=== PATIENT | male | born 1985 | race Caucasian/White ===

== ENCOUNTER 2020-04-19 14:06 | Outpatient (CLI) | payer OTHER, SELFPAY ==
--- NOTE | ~2020-04-19 | MR_ITS ---
EXAMINATION: MR lumbar spine wo con EXAM DATE: 04/19/2020 15:14 INDICATION: Chronic low back pain. TECHNIQUE: Multi-sequential, multiplanar MR images of the lumbar spine were obtained without contrast . Sagittal T1, T2, T2 fat saturation images. Axial T2 weighted images. There is no prior study for comparison. FINDINGS: The conus medullaris terminates at the L1 level and has normal signal intensity and morphol ogy. There are no suspicious marrow signal abnormalities. Paraspinal soft tissue is unremarkable. T here is chronic bilateral L5 spondylolysis with 12 mm anterolisthesis L5 on S1, moderate disc disease . Mild disc disease at L4-5. The vertebral body and disc heights are otherwise well maintained. The v ertebral bodies are otherwise aligned. Level by level evaluation: T12-L1: There is a mild diffuse disc bulge. Facet arthropathy: Mild. Neural foraminal stenosis: No stenosis. Central canal stenosis: No stenosis. L1-L2: Disc does not extend beyond the endplate margin. Facet arthropathy: Mild. Neural foraminal stenosis: No stenosis. Central canal stenosis: No stenosis. L2-L3: There is a mild diffuse disc bulge. Facet arthropathy: Mild. Neural foraminal stenosis: No stenosis. Central canal stenosis: No stenosis. L3-L4: There is a mild diffuse disc bulge. Facet arthropathy: Mild. Neural foraminal stenosis: No stenosis. Central canal stenosis: No stenosis. L4-L5: There is a mild to moderate diffuse disc bulge. Facet arthropathy: Mild to moderate. Neural foraminal stenosis: Mild bilateral. Central canal stenosis: Mild. L5-S1: There is a moderate diffuse disc bulge. Facet arthropathy: Mild. Neural foraminal stenosis: Moderate bilateral. Central canal stenosis: Mild. IMPRESSION: 1. L5-S1 bilateral spondylolysis, grade 2 anterolisthesis, moderate bilateral neural foraminal steno sis. 2. Otherwise mild lumbar spondylosis. Reviewed, dictated and finalized at location B. IMPRESSION: 1. L5-S1 bilateral spondylolysis, grade 2 anterolisthesis, moderate bilateral neural foraminal stenosis. 2. Otherwise mild lumbar spondylosis.
== END 2020-04-19 14:07 | disposition home or self-care (01) ==
PROVIDERS: PCP Family Medicine; Visit Provider Family Medicine
DX: M54.5 Low back pain (principal); G89.29 Other chronic pain; R93.89 Abnormal findings on diagnostic imaging of other specified body structures; M54.16 Radiculopathy, lumbar region; M43.17 Spondylolisthesis, lumbosacral region; M48.07 Spinal stenosis, lumbosacral region; M47.816 Spondylosis without myelopathy or radiculopathy, lumbar region
CPT/HCPCS: 72148

== ENCOUNTER 2021-07-27 15:59 | Emergency (ER) | payer SELFPAY ==
[2021-07-27 16:14] VITALS: BP 121/75; PULSE 71; RESP 20; TEMP 36.3; O2SAT 99
--- NOTE | 2021-07-27 16:26 | ED.SKABFB ---
HPI - Skin/Abscess/Foreign Bdy General Chief complaint: Skin/Abscess/Foreign Body Stated complaint: Insect Bite Time Seen by Provider: 07/27/21 16:26 History of Present Illness HPI narrative: Cornelio Meng is 36 yo male with no PMH who comes to [facility] with a soft lesion in the left side of neck that looks like a infected hair are patient thinks might be spider bite that became symptomatic 24 hours ago, no itching, mild tenderness Related Data Home Medications Medication Instructions Recorded Confirmed dextroamphetamine-amphetamine 40 mg PO DAILY 07/27/21 07/27/21 Allergies Allergy/AdvReac Type Severity Reaction Status Date / Time alprazolam Allergy Unknown Other Verified 07/27/21 16:30 Review of Systems Review of Systems: CONSTITUTIONAL: Denies fever, chills, sweats. EYES: Denies visual changes, redness, discharge. ENT: Denies rhinorrhea, congestion, sore throat, otalgia. CARDIOVASCULAR: Denies chest pain, palpitations, edema. RESPIRATORY: Denies dyspnea, wheezing, cough GASTROINTESTINAL: Denies abdominal pain, nausea, vomiting, diarrhea. GENITOURINARY: Denies dysuria, hematuria, abnormal discharge SKIN: Denies rash or itching. Lesion to left neck below the jawline that measures 1 x 2 NEUROLOGIC: Denies numbness, or focal weakness. PSYCHIATRIC: Denies anxiety or depression. PMFSH Past Medical History Medical History No acute medical problems Family History Family History Mother Patient's mother is in good health Father Patient's father is in good health Sibling Patient's brother is in good health Social History Social History (Updated 07/27/21 @ 16:47 by Marcie Laura CNP) Smoking status: Current every day smoker Tobacco type: cigarettes Alcohol intake: current Comments At time of signature, I agree with nursing past medical, surgical, social and family history. There is no relevant family history pertinent to the presenting complaint. Exam Narrative: GENERAL: This is a well-nourished, well-developed patient, in mild distress. HEAD: normocephalic, atraumatic. EYES: Sclera clear/white. Vision is grossly intact. EARS: External ears normal, . Hearing grossly intact. NOSE: External nose normal without nasal discharge, nares without redness, no rhinorrhea. THROAT: Mucous membranes moist, NECK: Neck supple,-tender lesion, non fluctuant, below L jawline, some redness, no drainage, he has few days chaudhry growth in the area CARDIOVASCULAR: Regular rate and rhythm without murmurs, gallops, or rubs. RESPIRATORY: Clear to auscultation. Breath sounds equal bilaterally. No wheezes, rales, or rhonchi. GASTROINTESTINAL: Abdomen soft, non-tender, SKIN: warm, intact except as above NEURO: awake, alert, and oriented to person, place and time. There were no obvious focal neurologic abnormalities. Steady gait EXTREMITIES: Normal range of motion. BACK: Nontender without deformity Course Course Emergency Course: Patient is here with lesions to left neck No drainage nonfluctuant Started on Keflex 500 mg 3 times daily, directions for care including warm soaks and not to try and open up, dry out razor Vital Signs Vital signs: Vital Signs Temperature 97.4 F L 07/27/21 16:14 Pulse Rate 71 07/27/21 16:14 Respiratory Rate 20 07/27/21 16:14 Blood Pressure 121/75 07/27/21 16:14 Pulse Oximetry 99 07/27/21 16:14 Temperature 97.4 F L 07/27/21 16:14 Pulse Rate 71 07/27/21 16:14 Respiratory Rate 20 07/27/21 16:14 Blood Pressure 121/75 07/27/21 16:14 Pulse Oximetry 99 07/27/21 16:14 MDM - Skin/Abscess/Foreign Bdy Differential Diagnosis Differential diagnosis: Likely abscess of skin or subcutaneous tissue, cellulitis, insect bites and other Critical Care Time Critical Care Time Critical Care Time: No Discharge Plan Discharge Clinical Impression: Foll
== END 2021-07-27 16:55 | disposition home or self-care (01) ==
PROVIDERS: Emergency Provider Nurse Practitioner; PCP Nurse Practitioner Family
DX: L73.9 Follicular disorder, unspecified (principal); F17.210 Nicotine dependence, cigarettes, uncomplicated
CPT/HCPCS: 99213; G0463

== ENCOUNTER 2025-05-23 20:35 | Emergency (ER) | payer SELFPAY ==
--- NOTE | ~2025-05-23 | XR_ITS ---
EXAM: XR hand RT min 3V DATE: 05/23/2025 21:17 HISTORY: wound, possible glass . COMPARISON: None available. FINDINGS: Normal mineralization. No fracture. DRUJ widening is suggested in the oblique view and the re is lack of normal overlap of distal radius and ulna in the lateral view. No lytic or blastic lesio n. Ulnar positive variance. Mild polyarticular osteoarthritis. No radiopaque foreign body. No erosion or periosteal change. Soft tissue irregularity over the lateral wrist and hand. IMPRESSION: No acute fracture. Question subluxation at the DRUJ, which could be acute or chronic. No radial opaque foreign body. Reviewed, dictated and finalized at location K.
--- OUTSIDE RECORDS SUMMARY | 2025-05-23 20:37 | XMS_ITS | Clinical Summary ---
Author Organization [facility] Address [address] [place] [address] Care Team Providers Care Licensed Loan Officer Name Role Phone Huyen Tamayo SANTO Primary Care Provider [phone] Allergies Active Allergy Reactions Criticality Noted Date Comments Lorazepam Hallucinations 03/30/2019 Medications amphetamine-dext roamphetamine 20 MG tablet Take 1 tablet (20 mg total) by mouth 2 (two) times daily. 0 03/09/2019 Active Active Problems Problem Noted Date Diagnosed Date Dental infection 04/05/2023 Chronic midline low back pain with bilateral sci atica 04/15/2020 Lumbar radiculopathy 04/15/2020 Abnormal x-ray 04/15/2020 Pars defect with spondylolisthesis 04/15/2020 Anterolisthesis 04/15/2020 Mass of spine 04/15/2020 Left foot pain 04/12/2019 Closed nondisplaced fracture of proximal phalanx of lesser toe of left foot, initial encounter 04/12/2019 Current smoker 03/30/2019 Vitamin D deficiency 03/30/2019 Attention deficit hyperactiv ity disorder (ADHD), predominantly inattentive type 03/30/2019 Class 2 obesity due to exces s calories without serious comorbidity with body mass index (BMI) of 36.0 to 36.9 in adult 03/30/2019 Resolved Problems Problem Noted Date Diagnosed Date Resolved Date Screening for endocrine, met abolic and immunity disorder 03/30/2019 07/01/2020 Immunizations Immunization Administration Dates Next Due Tdap (Boostrix) 03/30/2019 Tdap (Generic) 03/30/2019 Family History Medical History Relation Comments Diabetes Maternal Grandmother Heart Maternal Grandmother Hypertension Mother Thyroid Mother Relation Status Comments Father Alive Maternal Grandmother (Age 47) Mother Alive Social History Tobacco Use Types Packs/Day Years Used Date Smoking Tobacco: Every Day Cigarettes 15 1 Smokeless Tobacco: Never Tobacco Cessation:Ready to Q uit: Yes; Counseling Given: No Comments:10/22 PPD 04/05/23 Alcohol Use Standard Drinks/Week Comments No 0 (1 standard drink = 0.6 oz pur e alcohol) AUDIT-C Answer Date Recorded Frequency of Alcohol Consumption Never 03/30/2019 Average Number of Drinks Not on file 019 Frequency of Binge Drinking Not on file 03/21 PHQ-2 Answer Date Recorded Patient Health Questionnaire-2 Score 4 04/05/2023 Sex and Gender Information Value Date Recorded Sex Assigned at Male 04/15/2023 8:17 AM CDT Legal Sex Male 8:44 AM CDT Gender Identity Male 04/15/2023 8:17 AM CDT Sexual Orientation Straight 04/15/2023 8: 17 AM CDT Last Filed Vital Signs Vital Sign Reading Time Taken Comments Blood Pressure 127/71 04/05/2023 9:49 AM CDT Pulse 67 04/05/2023 9:49 AM CDT Temperature 36.2 C (97.1 F) 04/05/2023 9:49 AM CDT Respiratory Rate 16 04/05/2023 9:49 AM CDT Oxygen Saturation 97% 04/05/2023 9:49 AM CDT Inhaled Oxygen Concentration - - Weight 112.5 kg (248 lb) 04/05/2023 9:49 AM CDT Height 180.3 cm (5' 11) 04/05/2023 9:49 AM CDT Body Mass Index 34.59 04/05/2023 9:49 AM CDT Plan of Treatment Health Maintenance Due Date Last Done Comments Annual Physical 1986 Hepatitis C 2001 Hepatitis B Vaccines (1 of 3 - 19+ 3-dose series) 2002 Pneumococcal Vaccine: Pediatrics (0 to 5 Years) and At-Risk Patients (6 to 49 Years) (1 of 2 - PCV) 2002 HPV Vaccines (1 - 3-dose SCD M series) 2010 COVID-19 Vaccine (2023-2 5 season) 2024 PHQ-2 (Physician [place]) 10/21/2024 DTaP, Tdap and Td Vaccines ( 3 - Td or Tdap) 03/30/2029 03/30/2019, 03/30/2019 Meningococcal B Vaccine Aged Out No l onger eligible based on patient's age to complete this topic Meningococcal Vaccine Aged Out No francine ayse eligible based on patient's age to complete this topic RSV Immunizations Under 20 Months Aged Out No longer eligible b ased on patient's age to complete this topic Care Teams Licensed Loan Officer Relationship Specialty Start Date End Date Huyen Tamayo FNP [address] [place] [address] PCP - General Nurse Practitioner Family 03/30/19
--- OUTSIDE RECORDS SUMMARY | 2025-05-23 20:37 | XMS_ITS | Continuity of Care Document ---
Author Organization Merged with [facility] Address [address] [facility] [address] [place] [address] Phone Care Team Providers Care Eap Consultant Name Role Phone Roberto OD, Keith Unavailable Unavailable Advance Directives Directive Yes / No Effective Date File Name No Information Encounters Encounter Description Practice Location Reason(s) For Visit Diagnoses Date Provider Providers Copied on Encounter Located within [facility], [address], [place], [place], [id number], [place] tel:[phone] [facility] No Information 2-200 3 Roberto OD Keith. [address] , [address], [place], [address], [place]. tel:[phone] Family History Family Member Type Diagnosis Age At Onset No Information Payers Payer name Insurance type Covered green party ID Authoriza tion(s) No Information Social History Type Description Quantity Date Captured Comments Sex Male Smoking Status No Information Chief Complaint And Reason For Visit No Information Reason For Referral Reason For Referral No Information History Of Present Illness Encounter Date Complaint History Of Prese nt Illness No Information Functional Status Date Functional Assessmen t No Information Instructions Date Instruction Additional Infor mation No Information Assessments Type Assessment Date No Information Patient Care Teams Name Effective Dates (start - stop) Status Members No Information
--- OUTSIDE RECORDS SUMMARY | 2025-05-23 20:37 | XMS_ITS | Patient Health Record ---
Author Organization [facility] Address [address] [place], [place] [id number] Care Team Providers Care Swine Genetics Researcher Name Role Phone KADE TREJO Unavailable [phone] Huyen Tamayo Unavailable Unavailable Reason For Referral No Information Plan Of Treatment No Information Insurance Providers Payer Name Payer Address Payer Phone Subscriber Number Group Number Insured Name Patient Relationship to Insured Coverage Start Date Coverage End Date [facility] [address] [facility] [place] [address] [id number] KEE GARCIA Self - patient is the insured
[2025-05-23 20:45] VITALS: BP 149/93; PULSE 85; RESP 18; TEMP 36.3; O2SAT 98
--- NOTE | 2025-05-23 22:28 | PC.NURSE ---
Patient and walked out saying that he wasn't going to wait around any longer. reports-I'll just fix it at home. Patient walked out of ED with steady gait
--- NOTE | 2025-05-23 22:29 | PC.NURSE ---
Patient alert and oriented x 3. Pt states that he is done and will not be waiting any longer. Patient refusing any further treatment. Risks and consequences of leaving explained to the patient. Patient verbalizes an understanding of information provided.
--- OUTSIDE RECORDS SUMMARY | 2025-05-23 22:31 | XMS_ITS | Clinical Summary ---
Author Organization [facility] Address [address] [place] [address] Care Team Providers Care Engineering Lecturer Name Role Phone Huyen Tamayo SANTO Primary Care Provider [phone] Allergies Active Allergy Reactions Criticality Noted Date [...] Vaccine (2023-2 5 season) 2024 PHQ-2 (Physician [place]) 10/21/2024 DTaP, Tdap and Td Vaccines ( [...] age to complete this topic Care Teams Engineering Lecturer Relationship Specialty Start Date End Date Huyen Tamayo FNP [address] [place] [address] PCP - General Nurse Practitioner Family 03/30/19
== END 2025-05-23 22:29 | disposition left against medical advice (07) ==
PROVIDERS: Emergency Provider Registered Nurse; PCP Nurse Practitioner Family
DX: S61.411A Laceration without foreign body of right hand, initial encounter (principal); W01.110A Fall on same level from slipping, tripping and stumbling with subsequent striking against sharp glass, initial encounter
CPT/HCPCS: 73130; 99199